=== PATIENT | female | born 1965 | race Caucasian/White ===

== ENCOUNTER → 2020-11-05 11:20 | Outpatient (CLI) | payer OTHER, SELFPAY ==
--- NOTE | ~2020-11-05 | US_ITS ---
EXAMINATION: US pelvic complete DATE: 11/05/2020 11:40 INDICATION: Abnormal Pap smear. Endometrial cells found. Postmenopausal bleeding. Patient on postmeno pausal hormone replacement therapy. Comparison:Ultrasound dated 09/16/2015 TECHNIQUE: Multiple transabdominal and endovaginal sonographic images of the pelvis performed. FINDINGS: The uterus measures 11.5 x 6 x 8.2 cm.. The endometrial complex measures 1.4 cm. Endometriu m is heterogeneous. To the left aspect of the uterus there is a 5.6 cm uterine fibroid. The ovaries are not visualized, likely atrophic. There is no free fluid in the pelvis. There are no abnormal masses seen on either side. IMPRESSION: 1. Thickened endomtrial complex. The differential diagnosis includes endometrial hyperplasia, polyp a nd carcinoma. Biopsy is recommended. 2: Uterine fibroid measuring 5.6 cm. Reviewed, dictated and finalized at location A. IMPRESSION: 1. Thickened endomtrial complex. The differential diagnosis includes endometria l hyperplasia, polyp and carcinoma. Biopsy is recommended. 2: Uterine fibroid measuring 5.6 cm.
== END ==
PROVIDERS: PCP Family Medicine; Visit Provider Obstetrics & Gynecology Gynecology
DX: N85.00 Endometrial hyperplasia, unspecified (principal); D25.9 Leiomyoma of uterus, unspecified
CPT/HCPCS: 76856

== ENCOUNTER 2021-01-13 00:14 | Day surgery (SDC) | payer OTHER, SELFPAY ==
[2021-01-03 13:57] VITALS: BMI 24.2
[2021-01-13 06:19] VITALS: BP 107/58; PULSE 90; RESP 16; TEMP 36.4; O2SAT 100
[2021-01-13] MEDS: ACETAMINOPHEN 500 MG TABLET 1000 MG PO (06:27)
[2021-01-13] MEDS: LACTATED RINGERS 1,000 ML 30 ML IV CONT (06:30)
--- NOTE | 2021-01-13 06:55 | WPDANESEPPF ---
Anes - Initial Pre Proc Eval Procedure: Operation Date: 01/13/21 07:30 Proposed Procedures p Hysteroscopy with Myosure - Tressa Gilbert MD Date/Time: 01/13/21 06:55 Surgeon: Tressa Gilbert MD Pre Op Diagnosis: thickened endometrium lining, uterine polyp, fibro Patient Data Age: 55 Gender: F Height: 1.5 m Weight: 56 kg Last Vital Signs Temp 36.4 C L 01/13/21 06:19 Pulse 90 01/13/21 06:19 Resp 16 01/13/21 06:19 BP 107/58 L 01/13/21 06:19 Pulse Ox 100 01/13/21 06:19 Allergies Allergy/AdvReac Type Severity Reaction Status Date / Time No Known Allergies Allergy Verified 01/13/21 06:22 Home Medications Medication Instructions Recorded Confirmed Type alprazolam 0.25 mg tablet 0.25 mg PO DAILY PRN 11/20/19 01/13/21 History cholecalciferol (vitamin D3) 25 25 mcg PO DAILY 11/20/19 01/13/21 History mcg (1,000 unit) capsule citalopram 20 mg tablet 20 mg PO DAILY 11/20/19 01/13/21 History estradiol 1 mg tablet 1 mg PO DAILY 11/20/19 01/13/21 History multivit with 1 tablet PO DAILY 11/20/19 01/13/21 History vgvocmnx-oeaf-BS-lutein 8 mg iron-400 mcg-300 mcg tablet norethindrone acetate 10 mg PO DAILY 01/03/21 01/13/21 History Patient hx anesthesia problems: none Family hx anesthesia problems: none Results Review: All pre-operative results and documents have been reviewed as part of the pre-operative evaluation. [facility] Past Medical History Medical History Anxiety Depression Family History Family History Mother Family history of glaucoma Hypertension Family history of elevated blood lipids Colon polyp Family history of malignant neoplasm of breast in first degree relative, Onset Age: 52 Grandparent Hypertension Father Malignant neoplasm of prostate, Onset Age: 55 Social History Social History Smoking status: Never smoker Alcohol intake: current Drinks per week: 3 Substance use: never Substance use type: does not use Living arrangements: with family Spiritual care concerns: No Anes - Eval Final PreProcedure Day of Procedure 01/13/21 06:55 Patient weight: normal Heart: regular rate and rhythm Lungs: clear to auscultation Airway: Mallampati scale class II Neurological: alert and oriented Last oral intake: >/= 8 hours ASA classification: II Emergent: no Anesthetic plan: proceed Anesthesia type and monitoring: general GIVS and standard monitoring Results Review: All pre-operative results and documents have been reviewed as part of the pre-operative evaluation. Informed Consent: The patient's anesthetic plan and its attendant risks and benefits were discussed with the patient/family/POA. Questions were solicited and answers provided to the satisfaction of the patient/family/POA.
--- NOTE | 2021-01-13 07:20 | WPDHPUPDATE1 ---
History and Physical Update Update Date/Time: 01/13/21 07:20 History and Physical has been reviewed, including an updated exam of the patient. There are NO changes in the patient's condition. Risks, benefits, and alternatives have been discussed and questions answered. Patient agrees to proceed with procedure.
--- NOTE | 2021-01-13 07:20 | PM.HPGS ---
History of Present Illness History of Present Illness Consent: Risks, benefits, and alternatives have been discussed and questions answered. Patient agrees to proceed with procedure. Chief complaint: thickened endometrium lining, uterine polyp, fibro Narrative: Xiomara Carreno is a 55 year old female who had endometrial cells on her Pap in October of 2020. She underwent ultrasound which revealed a thickened lining. She underwent a hysteroscopy in the office which revealed a large polyp filling the cavity that was unable to be removed in the office. The patient presents today for MyoSure resection of endometrial polyp. The mass could also represent a fibroid as she has a fibroid listed on the left side of her uterus. Risks of infection, bleeding, perforation, and fluid imbalance with were reviewed. Possible pathology was discussed. Patient voices understanding and agrees to proceed. Review of Systems Review of Systems: not repeated day of surgery; patient states no changes in status PMFSH Past Medical History Medical History (Updated 01/13/21 @ 07:25 by Tressa Gilbert MD) Anxiety Depression (normal spontaneous vaginal delivery) x2 Status post hysteroscopy 2020 Family History Family History Mother Family history of glaucoma Hypertension Family history of elevated blood lipids Colon polyp Family history of malignant neoplasm of breast in first degree relative, Onset Age: 52 Grandparent Hypertension Father Malignant neoplasm of prostate, Onset Age: 55 Social History Social History Smoking status: Never smoker Alcohol intake: current Drinks per week: 3 Substance use: never Substance use type: does not use Living arrangements: with family Spiritual care concerns: No Meds Home Medications and Allergies Home Medications Medication Instructions Recorded Confirmed Type alprazolam 0.25 mg tablet 0.25 mg PO DAILY PRN 11/20/19 01/13/21 History cholecalciferol (vitamin D3) 25 25 mcg PO DAILY 11/20/19 01/13/21 History mcg (1,000 unit) capsule citalopram 20 mg tablet 20 mg PO DAILY 11/20/19 01/13/21 History estradiol 1 mg tablet 1 mg PO DAILY 11/20/19 01/13/21 History multivit with 1 tablet PO DAILY 11/20/19 01/13/21 History qounjfgr-hrpk-TE-lutein 8 mg iron-400 mcg-300 mcg tablet norethindrone acetate 10 mg PO DAILY 01/03/21 01/13/21 History Allergies Allergy/AdvReac Type Severity Reaction Status Date / Time No Known Allergies Allergy Verified 01/13/21 06:22 Vital Signs Vital Signs - 24 hr 01/13/21 06:19 Temperature 97.5 F L Pulse Rate 90 Respiratory Rate 16 Blood Pressure 107/58 L Pulse Oximetry 100 Exam Const: General: comfortable and no acute distress GI: Inspection: normal to inspection GI Palp: No abdominal tenderness : External Female Exam: normal external appearance Speculum Exam - Vagina: normal appearance of the vagina Speculum Exam - Cervix: normal appearance of the cervix Bimanual exam- vagina & uterus: other (Uterus 12cm) Bimanual Exam- Adnexa, other: normal adnexae Assessment and Plan Assessment and plan (1) Thickened endometrium: Code(s): R93.89 - Abnormal findings on diagnostic imaging of other specified body structures Status: Acute Assessment and Plan: Endometrial polyp versus fibroid noted on hysteroscopy. Plan is for excision of mass with MyoSure device.
--- NOTE | 2021-01-13 08:06 | W.PM.PROC2 ---
Procedure Note - Detailed Date of Procedure 01/13/21 Pre-op Diagnosis thickened endometrium lining, endometrial cells on Pap smear, uterine polyp, fibroid Post-op Diagnosis same Procedure Performed MyoSure resection fibroid and polyps Surgeon Tressa Gilbert MD Anesthesia MAC and local Findings Uterus sounds to 12cm. There are several thickened areas of endometrium consistent with polyps. There is a fibroid in the left lateral sidewall. Description of Procedure The patient was taken to the operating room and placed under anesthesia in the dorsal lithotomy position. She was prepped and draped in the usual sterile fashion. [place] speculum was placed in the vagina and the cervix is grasped on the anterior lip with a tenaculum. The cervix is injected in each quadrant with lidocaine 1%. The uterus was sounded to 12cm and the cervix is serially dilated with [place]. The extra-large MyoSure device is placed and the polypoid appearing tissue is removed easily. The lesion in the left upper fundus is is noted to be a fibroid as resection is occurring. The majority is removed easily however there is a calcified portion near the sessile base. This was removed less easily. The fibroid appears to be also intramural. The fibroid is made is flat as possible. The MyoSure device is removed and the medium sharp curette used to sharply curette the endometrium until a good uterine cry is noted in all areas. All instruments are removed. Fluid and is 4100 fluid out is 3200. Sponge, needle, and instrument counts are correct per the OR staff. She was awakened from anesthesia and taken to recovery in stable condition. Estimated Blood Loss 5 Drains No Packing No Pathology yes (Endometrial shavings and curettings) Complications No immediate complications Condition stable Disposition PACU
[2021-01-13 08:08] VITALS: BP 105/63; PULSE 74; RESP 16; O2SAT 92
[2021-01-13 08:35] VITALS: BP 101/51; PULSE 61; RESP 16; O2SAT 100
[2021-01-13 09:00] VITALS: BP 95/66; PULSE 57; RESP 14
== END 2021-01-13 09:10 | disposition home or self-care (01) ==
PROVIDERS: PCP Family Medicine; Visit Provider Obstetrics & Gynecology Gynecology
PROC: 0U5B8ZZ Destruction of Endometrium, Via Natural or Artificial Opening Endoscopic (ICD-10-PCS; CPT 58563; principal; 2021-01-13 07:30)
DX: N85.02 Endometrial intraepithelial neoplasia [EIN] (principal); D25.0 Submucous leiomyoma of uterus; F41.8 Other specified anxiety disorders
CPT/HCPCS: 58561; 88305; A9270; J2704; J7030; J7120

== ENCOUNTER 2024-11-27 06:37 | Day surgery (SDC) | payer OTHER, SELFPAY ==
[2024-10-31 09:41] VITALS: BMI 23.2
[2024-11-08 12:59] VITALS: BMI 20.9
--- OUTSIDE RECORDS SUMMARY | 2024-11-27 06:44 | XMS_ITS | Clinical Summary ---
Author Organization [facility] Address [address] [place] [address] Care Team Providers Care Debug Technician Name Role Phone Chuy Yi MD Primary Care Provider [phone] Source Comments [facility],non-[facility] Affiliates and Associated Physician Practices is amultiple site organization consisting of ambulatory clinics and hospital sitesin [place], [place], [place] and [place]. This disclosure is being madepursuant to the Care Everywhere program and may not contain all information available regarding this patient. Last updated 17.[facility] Family History Medical History Relation Name Comments Cancer - Breast Mother Relation Name Status Comments Mother Social History Tobacco Use Types Packs/Day Years Used Date Smoking Tobacco: Never Assessed Comments No Sex and Gender Information Value Date Recorded Sex Assigned at Not on file Legal Sex Female 6:19 AM CUE SELECTOR Gender Identity Not on file Sexual Orientation Not on file Plan of Treatment Health Maintenance Due Date Last Done Comments COLOGUARD (AGES 45-75) - COL ON CA SCREENING 1964 COLON MONITORING 1964 COLONOSCOPY - COLON CA SCREENING 1964 CT COLONOGRAPHY - COLON CA SCREENING 1964 Colorectal Cancer Screening 1964 FIT - COLON CA SCREENING 1964 FLEX SIG - COLON CA SCREENING 1964 LIPID TESTING 1964 HIV SCREENING 02/05/1979 HEPATITIS C SCREENING 02/01/1982 DTAP/TDAP/TD VACCINES (1 - Tdap) 02/05/1983 PNEUMOCOCCAL VACCINE 50+ (1 of 1 - PCV) 02/05/2014 ZOSTER VACCINE (1 of 2) 02/05/2014 MAMMOGRAM 05/19/2020 05/19/2018 COVID-19 VACCINE (2023-2 5 season) 2023 DEPRESSION SCREENING 04/12/2024 INFLUENZA VACCINE (#1) 2024 Respiratory Syncytial Virus (RSV) Vaccine Pt: or over 60 yrs (1 - 1-dose 75+ series) 02/05/2039 HEPATITIS B VACCINE Aged Out No longe r eligible based on patient's age to complete this topic HIB VACCINE Aged Out No longer eligi ble based on patient's age to complete this topic HPV VACCINE Aged Out No longer eligi ble based on patient's age to complete this topic MENINGOCOCCAL (Group B) VACC INE SHARED DECISION-MAKING Aged Out No longer eligibl e based on patient's age to complete this topic MENINGOCOCCAL GROUPS A/C/Y/W VACCINE Aged Out No longer eligible b ased on patient's age to complete this topic Procedures Procedure Name Priority Date/Time Associated Diagnosis Comments MAMMO BILAT SCREENING Routine 05/19/2018 11:22 AM CUE SELECTOR Breast cancer screening from Last 3 Months or Most Recently Relevant to Health Maintenance Results * KILEY SCREENING DIGITAL IMAGE BILATERAL [id number] (05/19/2018 11:22 AM CUE SELECTOR) Anatomical Region Laterality Modality Breast Bilateral Mammography 05/30/2018 3:16 PM CUE SELECTOR Impressions 05/30/2018 3:17 PM CUE SELECTOR No mammographic evidence of malignancy in either breast. ASSESSMENT: BIRADS Category 1: Negative mammogram. RECOMMENDATION: Bilateral screening mammogram in one year. Thank you for allowing us to participate in the care of your patient. [facility] utilizes [employer] as a reminder system to notify patients of their next recommended mammogram. Reading Radiologist: Juany Caballero MD on 05/30/2018 at 3:17 PM Narrative 05/30/2018 3:17 PM CUE SELECTOR EXAMINATION: Digital screening mammogram on 05/19/2018. Low-dose full-field digital breast tomosynthesis examination was performed with synthetic 2D images and 3D acquisitions. Computer assisted detection was utilized. PRIOR: Multiple prior mammograms from [facility], most recently 03/08/2017 and dating back to 02/19/2015. BREAST PARENCHYMAL DENSITY: The breasts are heterogeneously dense, which may obscure small masses. FINDINGS: No suspicious masses, areas of architectural distortion or microcalcifications are evident on synthetic 2D mammogram or tomosynthesis images. There has been no significant interval change since the prior examination. Tressa Gilbert MD MAMMO ORDERABLES Final Resu lt from Last 3 Months or Most Recently Relevant to Health Maintenance Insurance [facility] Care Teams Debug Technician Relationship Specialty Start Date End Date Chuy Yi MD [address] [id number] PCP - General Family Medicine 05/19/18
--- OUTSIDE RECORDS SUMMARY | 2024-11-27 06:44 | XMS_ITS | Encounter Summary ---
Author Organization [facility] Address [address] [place] [id number] Care Team Providers Care Supervisor Erection Shop Name Role Phone Chuy Yi MD Primary Care Provider [phone] Tressa Gilbert MD Unavailable [phone] Kathryn Wray MD Primary Care Provider Encounter Details Date Type Department Care Team (Late st Contact Info) Description 10/03/2005 Orders Only [facility] Health Information Management [address] [place] [id number] Scanning, Provider Social History Tobacco Use Types Packs/Day Years Used Date Smoking Tobacco: Never Assessed Comments Unknown Sex and Gender Information Value Date Recorded Sex Assigned at Not on file Legal Sex Female 3:26 AM FUR SCRAPER Gender Identity Female 03/27/2021 6:10 PM FUR SCRAPER Sexual Orientation Straight 03/27/2021 6: 10 PM FUR SCRAPER documented as of this encounter Plan of Treatment Not on file documented as of this encounter Procedures Procedure Name Priority Date/Time Associated Diagnosis Comments SCAN - LABS 10/03/2005 documented in this encounter Results * SCAN - LABS (10/03/2005) us Provider Scanning Final Result documented in this encounter Visit Diagnoses Not on filedocumented in this encounter Care Teams Supervisor Erection Shop Relationship Specialty Start Date End Date Chuy Yi MD [address] [place] [address] PCP - General 01/19/14 11/30/21 Kathryn Wray MD [address] [place] [id number] PCP - General Internal Medicine 12/01/21 Tressa Gilbert MD [address] [address] Referring Physician Gynecology 01/22/21 documented as of this encounter
--- OUTSIDE RECORDS SUMMARY | 2024-11-27 06:44 | XMS_ITS | Clinical Summary ---
Author Organization [facility] Address [address] [place] [address] Care Team Providers Care Chief Specialist Leed Name Role Phone Tressa Gilbert MD Unavailable [phone] Kathryn Wray MD Primary Care Provider Allergies No known active allergies Medications citalopram (CeleXA) 20 mg tabletIndications: Anxiety with Depression Take 1 tablet (20 mg total) by mouth nightly 1 Active ALPRAZolam (XANAX) 0.25 mg tablet Take 1 tablet (0.25 mg total) by mouth daily as needed 2 Active multivitamin capsule Take 1 capsule by mouth daily Active Imvexxy Maintenance Pack 10 mcg insert vaginal insert 4 Active cholecalciferol 400 unit capsule Act domonique cyanocobalamin, vitamin B-12, (VITAMIN B-12 ORAL) Take by mouth Active ascorbate calcium/bioflavono id (JOCELINE-C WITH BIOFLAVONOIDS ORAL) Take by mouth Active polyethylene glycol (GoLYTELY) 236-22.74-6.74 -5.86 gram solutionIndication s:Bowel Evacuation Drink 2L at 6:00 pm night before procedure and 2L at 8:30 am morning of procedure per my chart instructions. 4000 mL 5 Active Active Problems Problem Noted Date Diagnosed Date Colon cancer screening 06/08/2024 Family history of colon cancer 06/08/2024 Postoperative visit 04/03/2021 Complex atypical endometrial hyperplasia 021 Benign neoplasm of skin of face 01/20/2017 Melanocytic nevus of trunk 01/20/2017 Immunizations Immunization Administration Dates Next Due Influenza, Quadrivalent, Lynne l Culture-based MDCK, Preservative Free, Antibiotic Free, Intramuscular 01/25/2020 Influenza, Quadrivalent, Spl it, Preservative Free, Intramuscular 02/21/2022 Influenza, Trivalent, Cell Culture-based MDCK, Preservative Free, Antibiotic Free, Intramuscular 01/15/2024 Influenza, Unspecified 12/28/2022,2020,01/10/2021(Defer red: Patient Refused) Tdap 06/08/2024 ZOSTER Recombinant 07/09/2022,03/02/2022 Surgical History Surgery Date Site/Laterality Comments MYOMECTOMY COLONOSCOPY Medical History Medical History Date Comments Motion sickness Depression Anxiety Family History Medical History Relation Name Comments Prostate cancer Father Skin cancer Father Family history of skin cancer - (Added by TW Conv) Breast cancer Mother Transient ischemic attack Mother Anesthesia problems Neg Hx Relation Name Status Comments Father Mother Social History Tobacco Use Types Packs/Day Years Used Date Smoking Tobacco: Never Smokeless Tobacco: Never Tobacco Cessation:Counseling Given: Not Answered AUDIT-C Answer Date Recorded Q1: How often do you have a drink containing alc ohol? 2-3 times a week 03/14/2021 Q2: How many drinks containi ng alcohol do you have on a typical day when you are drinking? 1 or 2 03/14/2021 Q3: How often do you have si x or more drinks on one occasion? Never 03/14/2021 PHQ-2 Answer Date Recorded PHQ-2 Total Score (If total score is 3 or more points, staff should administer the PHQ-9) 0 06/08/2024 Personal Safety Answer Date Recorded Have you ever been in or are you currently in a harmful physical or emotional relationship or is someone making you feel afraid or unsafe? Denies 10/11/2022 Comments No Sex and Gender Information Value Date Recorded Sex Assigned at Not on file Legal Sex Female 3:26 AM ADHESIVE BANDAGE MAKING OPERATOR Gender Identity Female 03/27/2021 6:10 PM ADHESIVE BANDAGE MAKING OPERATOR Sexual Orientation Straight 03/27/2021 6: 10 PM ADHESIVE BANDAGE MAKING OPERATOR Obstetrics History Para Term AB IAB SAB Ectopic Multiple Livin g Live Births 2 2 2 2 Date Outcome GA Total Labor Labor/2nd/3rd Weight Sex Type Anes PTL Marisa A1 A5 Name Clin Term Term Last Filed Vital Signs Vital Sign Reading Time Taken Comments Blood Pressure 124/62 06/08/2024 9:14 AM ADHESIVE BANDAGE MAKING OPERATOR Pulse 81 06/08/2024 9:14 AM ADHESIVE BANDAGE MAKING OPERATOR Temperature 36.8 C (98.3 F) 06/08/2024 9:14 AM ADHESIVE BANDAGE MAKING OPERATOR Respiratory Rate 16 10/12/2022 4:00 AM CDT Oxygen Saturation 96% 06/08/2024 9:14 AM ADHESIVE BANDAGE MAKING OPERATOR Inhaled Oxygen Concentration - - Weight 47.2 kg (104 lb) 06/08/2024 9:14 AM ADHESIVE BANDAGE MAKING OPERATOR Height 149.9 cm (4' 11) 06/08/2024 9:14 AM ADHESIVE BANDAGE MAKING OPERATOR Body Mass Index 21.01 06/08/2024 9:14 AM ADHESIVE BANDAGE MAKING OPERATOR Plan of Treatment Health Maintenance Due Date Last Done Comments Hepatitis B Screening 02/05/1982 Colon Cancer Screening-Colonoscopy 08/03/2021 08/03/2014 Influenza Vaccine (#1) 2024 , 12/28/2022, 02/21/2022, Additional history exists Depression Screening 06/08/2025 06/08/2024, 01/21/2023, 10/15/2022, Additional history exists Regular Well Visit/Exam 18-64 06/08/2025 06/08/2024, 01/21/2023, 12/01/2021 Breast Cancer Screening-Mammogram 07/06/2025 07/06/2024, 07/05/2023, 06/29/2022, Additional history exists DTaP/Tdap/Td Vaccine (2 - Td or Tdap) 06/08/2034 06/08/2024 Colon Cancer Screening-CT Colonography Discontinued 08/03/2014 Colon Cancer Screening-DNA Stool Discontinued 08/03/2014 Colon Cancer Screening-FIT Discontinued 08/03/2014 Colon Cancer Screening-Sigmoidoscopy Discontinued 08/03/2014 Zoster Vaccine Completed 07/09/2022, 03/02/2022 Covid-19 Vaccine Completed 01/15/2024, 12/2022, 02/17/2021, Additional history exists Hepatitis C Screening Completed 08/16/2024 Pneumococcal vaccine <65 Aged Out No longer eligible based on patient's age to complete this topic Procedures Procedure Name Priority Date/Time Associated Diagnosis Comments HEPATITIS C ANTIBODY Routine 08/16/2024 8:44 AM CDT Need for hepatitis C screening test SCREENING MAMMOGRAM BILATERAL W MYRIAM Schedule Routine, Read Routine (OP Routine) 07/06/2024 9:02 AM CDT Screening mammogram, encounter for COLONOSCOPY Routine 08/03/2014 from Last 3 Months or Most Recently Relevant to Health Maintenance Results * Hepatitis C antibody Blood (08/16/2024 8:44 AM CDT) Hep C Ab NON-REACTI VE NON-REACT DOMONIQUE [facility] Comment: HCV antibody was non-reactive. There is no laboratory evidence of HCV infection. In most cases, no further action is required. However, if recent HCV exposure is suspected, a test for HCV RNA (test code 04139) is suggested. For additional information please refer to http://education.Snaptee/faq/PDL96u7 (This link is being provided for informational/ educational purposes only.) Blood 08/16/2024 8:44 AM CDT 08/16/2024 8:45 AM CDT Narrative [facility] - 08/17/2024 4:34 AM CDT FASTING:YES FASTING: YES us Kathryn Wray MD LAB M ICROBIOLOGY - GENERAL ORDERABLES Final Result [facility] [address] [place] [address] * Screening Mammogram Bilateral W Myriam (07/06/2024 9:02 AM CDT) Anatomical Region Laterality Modality Breast Bilateral Mammography Narrative 07/07/2024 10:31 AM CDT Mammogram Technique: Bilateral Digital Breast Tomosynthesis, Bilateral C-view 2D Screening mammogram. Views obtained: bilateral craniocaudal and bilateral mediolateral oblique. Computer Aided Detection was performed. Mammogram Findings: The present examination has been compared to prior imaging studies performed at [facility] on 06/29/2022, 08/26/2022 and 07/05/2023. The breasts are extremely dense, which lowers the sensitivity of mammography. There is asymmetry in the middle inner breast on the craniocaudal view of the right breast. There is no suspicious abnormality in the left breast. Impression: Asymmetry in the right breast requires additional evaluation. Diagnostic mammogram and possible ultrasound of the right breast are recommended at this time. OVERALL FINAL ASSESSMENT: BI-RADS CATEGORY 0: Incomplete: Need additional imaging evaluation. Procedure Note Cyn House MD - 07/07/2024 Mammogram Technique: Bilateral Digital Breast Tomosynthesis, Bilateral C-view 2D Screening mammogram. Views obtained: bilateral craniocaudal and bilateral mediolateral oblique. Computer Aided Detection was performed. Mammogram Findings: The present examination has been compared to prior imaging studies performed at [facility] on 06/29/2022, 08/26/2022 and 07/05/2023. The breasts are extremely dense, which lowers the sensitivity of mammography. There is asymmetry in the middle inner breast on the craniocaudal viewof the right breast. There is no suspicious abnormality in the left breast. Impression: Asymmetry in the right breast requires additional evaluation. Diagnostic mammogram and possible ultrasound of the right breast are recommended at this time. OVERALL FINAL ASSESSMENT: BI-RADS CATEGORY 0: Incomplete: Need additional imaging evaluation. Self Screening Mammogram IMG MAMMO PROCEDURES Fi nal Result * Colonoscopy (08/03/2014) Anatomical Region Laterality Modality Other 08/03/2014 [facility] Provider ENDOSCOPY PROCEDURES Katerina l Result from Last 3 Months or Most Recently Relevant to Health Maintenance Insurance [facility] CHO[facility] HMO/PPO Address: [address] [place] [address] [facility] CHO[facility] H[facility]/PPO Address: [address] [place] [address] [facility] CHO[facility] H[facility]/PPO Address: [place] [address] Care Teams Chief Specialist Leed Relationship Specialty Start Date End Date Kathryn Wray MD [address] [place] [id number] PCP - General Internal Medicine 12/01/21 Tressa Gilbert MD [address] [place] [address] Referring Physician Gynecology 01/22/21
--- OUTSIDE RECORDS SUMMARY | 2024-11-27 06:44 | XMS_ITS | Encounter Summary ---
Author Organization [facility] Address [address] [place] [address] Care Team Providers Care Taker Off Drying Kiln Name Role Phone Tressa Gilbert MD Unavailable [phone] Kathryn Wray MD Primary Care Provider Reason for Referral * Consultation (Routine) - Closed Specialty Diagnoses / Procedures Referred By Contac t Referred To Contact Gastroenterology Diagnoses Screening for malignant neoplasm of colon Kathryn Wray MD [address] [place] [id number] Phone: tel: fax: Yolis Foy, [address] [facility] [address] [place] [id number] Phone: tel: fax: Referral ID Status Reason Start Date Expiration Date V isits Requested Visits Authorized [id number] Closed Specialty Services Required 06/13/2024 07/13/2025 8 8 Question Answer Process Instructions: THE AMBULATORY REFERRAL TO GASTROENTEROLOGY IS NOT AN ORDER FOR A PROCEDURE (I.E. EGD, COLONOSCOPY.) USE THE DIRECT SCHEDULING CASE REQUEST ORDER (GI50) IF THE PATIENT REQUIRES A PROCEDURE TO BE PERFORMED. Please select the performing region: External Order [171] To Provider NOTE: we will do our best to honor your provider preference, but scheduling the patient in a timely manner in our clinic will take precedence. YOLIS FOY [[id number]] # of visits: 1 [place] PHARMACIST Encounter Details Date Type Department Care Team (Late st Contact Info) Description 06/09/2024 Patient Message [facility] Medical Group Primary Care [address] [place] [phone] Kathryn Wray MD [address] [phone] colonoscopy referral Social History Tobacco Use Types Packs/Day Years Used Date Smoking Tobacco: Never Smokeless Tobacco: Never AUDIT-C Answer Date Recorded Q1: How often [...] on file Legal Sex Female 3:26 AM RETAIL PHARMACIST Gender Identity Female 03/27/2021 6:10 PM RETAIL PHARMACIST Sexual Orientation Straight 03/27/2021 6: 10 PM RETAIL PHARMACIST documented as of this encounter Miscellaneous Notes * Telephone Encounter - Kathryn Wray MD - 06/12/2024 10:47 AM CST Ok can we fax referral for Colonoscopy or GI at [facility]; sorry I am not familiar with theGI doctors there, looks like all the ones I usually refer to do not perform services at the places listed. [place] PHARMACIST * Telephone Encounter - Alicia Juarez MA - 06/12/2024 10:36 AM CST No he does not [place] PHARMACIST * Telephone Encounter - Kathryn Wray MD - 06/12/2024 10:[address] Morley do colonoscopies at [facility]? [place] PHARMACIST documented in this encounter Plan of Treatment Scheduled Referrals Name Type Priority Associated Diagnoses Order Schedule Ambulatory referral to Gastroenterology Outpatient Referral Routine Screening for malignant neoplasm of colon Expected: 06/27/2024 (Approximate), Expires: 06/13/2025 documented as of this encounter Visit Diagnoses Diagnosis Screening for malignant neoplasm of colon- Primary documented in this encounter Care Teams Taker Off Drying Kiln Relationship Specialty Start Date End Date Kathryn Wray MD [address] [place] [phone] PCP - General Internal Medicine 12/01/21 Tressa Gilbert MD [address] [address] Referring Physician Gynecology 01/22/21 documented as of this encounter
[2024-11-27 07:04] VITALS: BP 96/60; PULSE 77; RESP 16; TEMP 37.1; O2SAT 99; BMI 20.6
--- NOTE | 2024-11-27 07:15 | P.PNAN_ITS ---
Anes - Initial Pre Proc Eval Procedure: Operation Date: 11/27/24 08:00 Proposed Procedures p Screening Colonoscopy - Aman Foy DO Date/Time: 11/27/24 07:15 Surgeon: Aman Foy DO Pre Op Diagnosis: Neoplasm Screening Patient Data Age: 59 Gender: F Height: 1.5 m Weight: 46.4 kg Last Vital Signs Temp 98.7 F 11/27/24 07:04 Pulse 77 11/27/24 07:04 Resp 16 11/27/24 07:04 BP 96/60 L 11/27/24 07:04 Pulse Ox 99 11/27/24 07:04 O2 Del Method Room Air 11/27/24 07:04 Allergies Allergy/AdvReac Type Severity Reaction Status Date / Time No Known Allergies Allergy Verified 11/27/24 06:54 Home Medications ?Medication ?Instructions ?Recorded ?Confirmed ?Type alprazolam 0.25 mg tablet 0.25 mg PO DAILY PRN Anxiety 11/20/19 11/08/24 History cholecalciferol (vitamin D3) 25 25 mcg PO DAILY 11/20/19 11/27/24 History mcg (1,000 unit) capsule citalopram 20 mg tablet 20 mg PO DAILY 11/20/19 11/27/24 History ltwneeul-mmlg-fdib 8 mg-folic 400 1 tablet PO DAILY 11/20/19 11/27/24 History mcg-K 50 mcg-lutein 300 mcg tablet (Centrum Silver Women) estradiol 10 mcg vaginal insert 10 mcg vaginal 2XW 11/08/24 11/27/24 History (Imvexxy Maintenance Pack) mecobalamin (vitamin B12) 1,000 1,000 mcg PO DAILY 11/08/24 11/27/24 History mcg chewable tablet psyllium husk 0.52 gram capsule 0.52 g PO DAILY 11/08/24 11/27/24 History Patient hx anesthesia problems: none Family hx anesthesia problems: none Results Review: All pre-operative results and documents have been reviewed as part of the pre- operative evaluation. [facility] Past Medical History Medical History Anxiety Depression (normal spontaneous vaginal delivery) x2 Status post hysteroscopy 2020 Family History Family History Mother Family history of glaucoma Hypertension Family history of elevated blood lipids Colon polyp Family history of malignant neoplasm of breast in first degree relative, Onset Age: 52 Grandparent Hypertension Father Malignant neoplasm of prostate, Onset Age: 55 Social History Social History Smoking status: Never smoker Alcohol intake: current Drinks per week: 3 Substance use: never Substance use type: does not use Living arrangements: with family Spiritual care concerns: No Anes - Eval Final PreProcedure Day of Procedure 11/27/24 07:15 Heart: regular rate and rhythm Lungs: clear to auscultation Airway: Mallampati scale class 1 Neurological: alert and oriented Last oral intake: >/= 8 hours ASA classification: II Anesthetic plan: proceed Anesthesia type and monitoring: monitored anesthesia care Results Review: All pre-operative results and documents have been reviewed as part of the pre- operative evaluation. Informed Consent: The patient's anesthetic plan and its attendant risks and benefits were discussed with the patient/family/POA. Questions were solicited and answers provided to the satisfaction of the patient/family/POA.
[2024-11-27] MEDS: LACTATED RINGERS 1,000 ML 150 ML IV CONT ×2 (07:19→08:53)
--- NOTE | 2024-11-27 07:48 | P.HP_ITS ---
H&P: HPI History of Present Illness Date/Time: 11/27/24 07:48 Chief Complaint: Screening for colorectal cancer, family history of colon cancer Narrative: this is a 59-year-old woman who presents for colonoscopy. Her last colonoscopy was 5 years ago and was normal. She has a family history of colon cancer in her brother. She denies any hematochezia or melena. Review of Systems Review of Systems: All systems reviewed & are unremarkable except as noted in HPI and below Constitutional: Constitutional: Denies chills, Denies fever(s), Denies headache(s) and Denies weight loss Eyes: Eyes: Denies change in vision ENT: Denies dizziness, Denies headache(s), Denies neck mass and Denies throat swelling Cardiovascular: Cardiovascular: Denies chest pain, Denies lightheadedness and Denies dyspnea Respiratory: Respiratory: Denies cough, Denies dyspnea and Denies wheezing Gastrointestinal: Gastrointestinal: Denies abdominal pain, Denies change in bowel habits, Denies nausea and Denies vomiting Genitourinary: Genitourinary: Denies hematuria and Denies dysuria Musculoskeletal: Musculoskeletal: Reports as per HPI Integumentary/Breasts: Skin/Breast: Reports as per HPI Neurologic: Denies dizziness and Denies headache(s) Allergic/Immunologic: Allergic/Immunologic: Denies throat swelling and Denies wheezing PMF Past Medical History Medical History Anxiety Depression (normal spontaneous vaginal delivery) x2 Status post hysteroscopy 2020 Family History Family History Mother Family history of glaucoma Hypertension Family history of elevated blood lipids Colon polyp Family history of malignant neoplasm of breast in first degree relative, Onset Age: 52 Grandparent Hypertension Father Malignant neoplasm of prostate, Onset Age: 55 Social History Social History Smoking status: Never smoker Alcohol intake: current Drinks per week: 3 Substance use: never Substance use type: does not use Living arrangements: with family Spiritual care concerns: No Meds Home Medications and Allergies Home Medications ?Medication ?Instructions ?Recorded ?Confirmed ?Type alprazolam 0.25 mg tablet 0.25 mg PO DAILY PRN Anxiety 11/20/19 11/08/24 History cholecalciferol (vitamin D3) 25 25 mcg PO DAILY 11/20/19 11/27/24 History mcg (1,000 unit) capsule citalopram 20 mg tablet 20 mg PO DAILY 11/20/19 11/27/24 History szotaets-ycdy-ubqy 8 mg-folic 400 1 tablet PO DAILY 11/20/19 11/27/24 History mcg-K 50 mcg-lutein 300 mcg tablet (Centrum Silver Women) estradiol 10 mcg vaginal insert 10 mcg vaginal 2XW 11/08/24 11/27/24 History (Imvexxy Maintenance Pack) mecobalamin (vitamin B12) 1,000 1,000 mcg PO DAILY 11/08/24 11/27/24 History mcg chewable tablet psyllium husk 0.52 gram capsule 0.52 g PO DAILY 11/08/24 11/27/24 History Allergies Allergy/AdvReac Type Severity Reaction Status Date / Time No Known Allergies Allergy Verified 11/27/24 06:54 Vital Signs Vital Signs - 24 hr 11/27/24 07:04 Temperature 98.7 F Pulse Rate 77 Respiratory Rate 16 Blood Pressure 96/60 L Pulse Oximetry 99 Oxygen Delivery Room Air Exam Const: General: no acute distress and alert Orientation/consciousness: pa tient oriented x3 HENMT: Head: normocephalic and atraumatic Ears: hearing grossly normal bilaterally Face/Nose/Sinus: Normal nares present Mouth: Yes Normal oral and palatal mucosa present Eyes: Periorbital: periorbital findings normal Sclera: sclerae normal EOM: EOMs intact bilaterally Neck: Neck: normal visual inspection, no lymphadenopathy and trachea midline Chest: Chest palpation & inspection: normal inspection of the chest Resp: Effort & Inspection: normal respiratory effort Auscultation: clear to auscultation bilaterally Cardio: Jugular venous distension: no JVD Rate: regular rate Rhythm: regular rhythm Heart sounds: S1 normal heart sound present and S2 normal heart sound present Peripheral pulses: Peripheral pulses 2+ throughout GI: Inspection: normal to inspection GI Palp: Yes Soft to palpation, No Tenderness to palpation present (GI), No Guarding due to palpation present (GI) and No Rebound tenderness present Percussion: Yes normal to percussion Auscultation: normal bowel sounds : General: Yes no CVA tenderness Back/Spine/Pelvis: Back: no CVA tenderness Neuro: General: patient oriented x3, no focal motor deficits and CN's II-XI intact bilaterally Cognition (Neuro): normal cognition Speech: normal speech Motor exam (neuro): 5/5 motor strength present throughout Extrem: General: capillary refill normal and no clubbing, cyanosis or edema Assessment and Plan Assessment and plan (1) Family hx of colon cancer: Code(s): Z80.0 - Family history of malignant neoplasm of digestive organs Status: Acute Assessment and Plan: I have recommended colonoscopy. I have discussed the procedure, risks, benefits, and alternatives. Questions were answered. Patient is agreeable to proceed.
--- NOTE | 2024-11-27 08:13 | WPDANESPN ---
Anes - Prog Note Post-Op Date/Time: 11/27/24 08:13 Vital Signs: Last Vital Signs Temp 98.7 F 11/27/24 07:04 Pulse 77 11/27/24 07:04 Resp 16 11/27/24 07:04 BP 96/60 L 11/27/24 07:04 Pulse Ox 99 11/27/24 07:04 O2 Del Method Room Air 11/27/24 07:04 Pain Score (VAS): no Patient Feedback: Patient satisfied with anesthetic care.
[2024-11-27 08:22] VITALS: BP 88/55; PULSE 73; RESP 15; O2SAT 100
[2024-11-27 08:32] VITALS: BP 90/59; PULSE 71; RESP 15; O2SAT 100
[2024-11-27 08:42] VITALS: BP 93/58; PULSE 82; RESP 15; O2SAT 100
== END 2024-11-27 08:20 | disposition home or self-care (01) ==
PROVIDERS: PCP Internal Medicine; Visit Provider Surgery
PROC: 0DJD8ZZ Inspection of Lower Intestinal Tract, Via Natural or Artificial Opening Endoscopic (ICD-10-PCS; CPT 45378; principal; 2024-11-27 08:00)
DX: Z12.11 Encounter for screening for malignant neoplasm of colon (principal); Z80.0 Family history of malignant neoplasm of digestive organs
CPT/HCPCS: 45378